=== PATIENT | female | born 1965 | race Caucasian/White ===

== ENCOUNTER 2021-02-03 04:53 | Emergency (ER) | payer BC ==
[2021-02-03 05:02] VITALS: BMI 23.3
[2021-02-03] MEDS ORDERED: LACTATED RINGERS SOLUTION 1000 ML INFUS.BAG IV ONE (05:19)
[2021-02-03] MEDS ORDERED: ONDANSETRON 4 MG/2 ML VIAL IVPUSH ONE ×2 (05:19→07:27)
[2021-02-03] MEDS ORDERED: ONDANSETRON 4 MG/2 ML VIAL ONE ×2 (05:27→07:56)
[2021-02-03] MEDS ORDERED: METOCLOPRAMIDE HCL INJECTION 10 MG/2 ML VIAL IVPUSH ONE (05:57)
[2021-02-03 05:59] LABS: BASO % 0.4 % (0-2.0); EOS % 4.4 % (0-4.5); HEMATOCRIT 41.9 % (32.4-45.2); LYMPH % 23.6 % (8-40); MCHC 33.5 g/dl (32.0-36.0); MEAN CELL VOLUME 92.5 fl (80-96); MEAN PLT VOLUME 11.6 fl (7.5-11.1); NEUT % 63.6 % (42.8-82.8); PLATELET COUNT 151 10^3/uL (134-434); RBC 4.53 M/mm3 (3.60-5.2); RDW 13.1 % (11.6-15.6); WHITE BLOOD COUNT 3.8 K/mm3 (4.0-10.0)
[2021-02-03] MEDS ORDERED: METOCLOPRAMIDE HCL INJECTION 10 MG/2 ML VIAL ONE (06:07)
[2021-02-03 06:17] LABS: CHLORIDE 102 mmol/L (98-107); SODIUM 135 mmol/L (136-145)
[2021-02-03 06:19] LABS: ALBUMIN 3.5 g/dl (3.4-5.0); CALCIUM 8.7 mg/dL (8.5-10.1)
[2021-02-03 06:20] LABS: ANION GAP 6 MMOL/L (8-16); BLOOD UREA NITROGEN 14.1 mg/dL (7-18); CO2 27 mmol/L (21-32); GLUCOSE,RANDOM 109 mg/dL (74-106)
[2021-02-03 06:22] LABS: SGPT/ALT 20 U/L (13-61)
[2021-02-03 06:23] LABS: CREATININE 0.6 mg/dL (0.55-1.3); SGOT/AST 19 U/L (15-37)
[2021-02-03 06:24] LABS: BILIRUBIN,TOTAL 0.4 mg/dL (0.2-1); TOT PROT 6.2 g/dl (6.4-8.2)
[2021-02-03 06:25] LABS: ALK PHOS 74 U/L (45-117)
[2021-02-03] MEDS ORDERED: FAMOTIDINE 20 MG TABLET PO ONE (07:37)
[2021-02-03] MEDS ORDERED: FAMOTIDINE 20 MG TABLET ONE (07:56)
[2021-02-03 08:15] VITALS: BP 125/68; PULSE 80; TEMP 98.2
== END 2021-02-03 08:16 | disposition home or self-care (01) ==
LOC: JER 04:53
PROC: 3E033NZ Introduction of Analgesics, Hypnotics, Sedatives into Peripheral Vein, Percutaneous Approach (ICD-10-PCS; principal; 2021-02-03)
PROC: 3E033GC Introduction of Other Therapeutic Substance into Peripheral Vein, Percutaneous Approach (ICD-10-PCS; 2021-02-03)
DX: E86.0 Dehydration (principal); R11.0 Nausea
CPT/HCPCS: 36415; 71045-TC-FY; 80053; 84484; 85025; 93005; 93010; 99285-25

== ENCOUNTER 2022-09-09 19:43 | Emergency (ER) | payer BC, OTHER ==
[2022-09-09 19:51] VITALS: RESP 17; TEMP 97.6; BMI 23.3
[2022-09-09 20:58] VITALS: BP 132/69; PULSE 74
[2022-09-09] MEDS ORDERED: FAMOTIDINE 20 MG/50 ML IVPB 20 MG/50 ML MG IVPB ONE ×2 (21:09→21:14)
[2022-09-09] MEDS ORDERED: METOCLOPRAMIDE HCL INJECTION 10 MG/2 ML VIAL IVPUSH ONE (21:09)
[2022-09-09] MEDS ORDERED: METOCLOPRAMIDE HCL INJECTION 10 MG/2 ML VIAL ONE (21:14)
[2022-09-09] MEDS ORDERED: LACTATED RINGERS SOLUTION 1,000 ML/1,000 ML INFUS.BAG IV SCH (21:15)
[2022-09-09 21:37] LABS: BASO % 0.2 % (0-2.0); EOS % 0.5 % (0-4.5); HEMATOCRIT 45.8 % (32.4-45.2); HEMOGLOBIN 14.7 GM/dL (10.7-15.3); LYMPH % 11.3 % (8-40); MCH 29.7 pg (25.7-33.7); MCHC 32.1 g/dl (32.0-36.0); MEAN CELL VOLUME 92.5 fl (80-96); MEAN PLT VOLUME 10.6 fl (7.5-11.1); MONO % 7.4 % (3.8-10.2); NEUT % 80.6 % (42.8-82.8); PLATELET COUNT 184 10^3/uL (134-434); RBC 4.96 M/mm3 (3.60-5.2); RDW 13.9 % (11.6-15.6); WHITE BLOOD COUNT 6.3 K/mm3 (4.0-10.0)
[2022-09-09 22:03] LABS: BLOOD UREA NITROGEN 6.4 mg/dL (7-18); CALCIUM 9.3 mg/dL (8.5-10.1)
[2022-09-09 22:04] LABS: ALBUMIN 3.8 g/dl (3.4-5.0)
[2022-09-09 22:06] LABS: CREATININE 0.6 mg/dL (0.55-1.3)
[2022-09-09 22:08] LABS: BILIRUBIN,TOTAL 0.4 mg/dL (0.2-1); TOT PROT 6.8 g/dl (6.4-8.2)
[2022-09-09 23:09] LABS: CALCIUM 8.8 mg/dL (8.5-10.1)
[2022-09-09 23:10] LABS: BLOOD UREA NITROGEN 5.2 mg/dL (7-18)
[2022-09-09 23:12] LABS: CREATININE 0.5 mg/dL (0.55-1.3)
== END 2022-09-09 23:53 | disposition home or self-care (01) ==
LOC: JER 19:43
PROC: 3E033GC Introduction of Other Therapeutic Substance into Peripheral Vein, Percutaneous Approach (ICD-10-PCS; principal; 2022-09-09)
DX: R51.9 Headache, unspecified (principal); R11.0 Nausea
CPT/HCPCS: 36415; 80048; 80053; 83690; 85025; 99284-25

== ENCOUNTER 2024-08-28 08:49 | Observation (INO) | payer OTHER ==
[2024-08-28 10:10] VITALS: BMI 23.8
[2024-08-28] MEDS ORDERED: MECLIZINE HCL 25 MG TABLET (FP) ONE ×2 (10:21→17:21)
[2024-08-28] MEDS: MECLIZINE HCL 25 MG TABLET (FP) PO ONE (10:29)
[2024-08-28] MEDS ORDERED: ONDANSETRON *ODT* 4 MG TABLET ONE (11:11)
[2024-08-28] MEDS: ONDANSETRON *ODT* 4 MG TABLET SL ONE (11:16)
[2024-08-28] MEDS ORDERED: diazePAM CARPU-JECT 10 MG/2 ML DISP.SYRIN ONE (11:55)
[2024-08-28 12:03] LABS: HEMOGLOBIN 14.9 GM/dL (10.7-15.3); MCH 30.6 pg (25.7-33.7); MCHC 33.8 g/dl (32.0-36.0); MEAN CELL VOLUME 90.6 fl (80-96); MEAN PLT VOLUME 11.1 fl (7.5-11.1); PLATELET COUNT 155 10^3/uL (134-434); RBC 4.86 M/mm3 (3.60-5.2); RDW 14.1 % (11.6-15.6); WHITE BLOOD COUNT 7.3 K/mm3 (4.0-10.0)
[2024-08-28] MEDS: diazePAM CARPU-JECT 10 MG/2 ML DISP.SYRIN IVPUSH ONE (12:06)
[2024-08-28] MEDS: SODIUM CHLORIDE 0.9% 500 ML INFUS.BAG IV ONE (12:07)
[2024-08-28 12:12] LABS: INR 1.07 (0.83-1.09); PROTHROMBIN TIME (PATIENT) 12.3 SEC (9.7-13.0)
[2024-08-28 12:14] LABS: ACTIVATED PTT 32.6 SECONDS (25.2-36.5)
[2024-08-28 12:20] LABS: ALBUMIN 3.6 g/dl (3.4-5.0); BLOOD UREA NITROGEN 13.9 mg/dL (7-18); CALCIUM 9.1 mg/dL (8.5-10.1)
[2024-08-28 12:24] LABS: BILIRUBIN,TOTAL 0.5 mg/dL (0.2-1); CREATININE 0.6 mg/dL (0.55-1.3); TOT PROT 6.7 g/dl (6.4-8.2)
[2024-08-28 12:41] LABS: ANISOCYTOSIS 0; MACROCYTOSIS 0
[2024-08-28] MEDS ORDERED: MECLIZINE HCL 25 MG TABLET (FP) PO PRN (15:39)
[2024-08-28 16:59] LABS: URINE APPEARANCE CLEAR; URINE BILIRUBIN NEGATIVE (NEGATIVE); URINE COLOR YELLOW; URINE GLUCOSE (UA) NEGATIVE (NEGATIVE); URINE KETONE TRACE (NEGATIVE); URINE LEUK ESTERASE NEGATIVE (NEGATIVE); URINE NITRITE NEGATIVE (NEGATIVE); URINE PROTEIN NEGATIVE (NEGATIVE); URINE UROBILINOGEN 0.2 mg/dL (0.2-1.0)
[2024-08-28] MEDS: MECLIZINE HCL 25 MG TABLET (FP) PO PRN (17:26)
[2024-08-29 08:11] LABS: HEMATOCRIT 41.8 % (32.4-45.2); MCH 30.6 pg (25.7-33.7); MCHC 33.6 g/dl (32.0-36.0); MEAN PLT VOLUME 11.4 fl (7.5-11.1); PLATELET COUNT 156 10^3/uL (134-434); RBC 4.59 M/mm3 (3.60-5.2); RDW 14.4 % (11.6-15.6); WHITE BLOOD COUNT 5.8 K/mm3 (4.0-10.0)
[2024-08-29 08:39] LABS: POTASSIUM 4.1 mmol/L (3.5-5.1)
[2024-08-29 08:45] LABS: ALBUMIN 3.2 g/dl (3.4-5.0); BLOOD UREA NITROGEN 10.3 mg/dL (7-18); MAGNESIUM 2.1 mg/dL (1.8-2.4)
[2024-08-29 08:48] LABS: CREATININE 0.7 mg/dL (0.55-1.3)
[2024-08-29 08:49] LABS: PHOSPHOROUS 3.8 mg/dL (2.5-4.9)
[2024-08-29 08:50] LABS: BILIRUBIN,TOTAL 0.5 mg/dL (0.2-1)
[2024-08-29 19:41] VITALS: BP 127/74; PULSE 74; RESP 18; TEMP 97.5
== END 2024-08-29 19:19 | disposition home or self-care (01) ==
LOC: JER 08:49 → JERBED 14:06 → J4W 23:21
PROVIDERS: ADMIT Internal Medicine; ATTEND Internal Medicine
PROC: 3E0337Z Introduction of Electrolytic and Water Balance Substance into Peripheral Vein, Percutaneous Approach (ICD-10-PCS; principal; 2024-08-28)
DX: R42 Dizziness and giddiness (principal); E86.0 Dehydration; R51.9 Headache, unspecified
CPT/HCPCS: 36415; 70450-TC; 70496-TC; 70498-TC; 71045-TC-FY; 80053; 81003; 82550; 83735; 84100; 84484; 85025; 85027; 85610; 85730; 86850; 86900; 86901; 93005; 93010; 96360; 97116-GP; 97161-GP; 99285-25; G0378